=== PATIENT | female | born 1985 | race African-American/Black ===

== ENCOUNTER 2018-08-27 22:11 | Observation (INO) | payer MEDICAID ==
[~2018-08-27] VITALS: Ht 165.1 cm; Wt 75.7 kg
[2018-08-27] MEDS ORDERED: PREN1TAB78 MT (22:56)
[2018-08-28] MEDS ORDERED: TERBUTALINE SULFATE 1MG/ML VIAL SUBCUT NR (00:45)
[2018-08-28] MEDS ORDERED: LACTATED RINGERS 1,000 ML IV ONE (00:45)
== END 2018-08-28 01:55 | disposition home or self-care (01) ==
LOC: 8 EST LDRP 22:11
PROVIDERS: ADMIT Specialist; ATTEND Specialist
DX: O26.892 Other specified pregnancy related conditions, second trimester (principal); R10.30 Lower abdominal pain, unspecified; O09.522 Supervision of elderly multigravida, second trimester; Z3A.27 27 weeks gestation of pregnancy
CPT/HCPCS: 76815; 96372; 99281; G0378; J3105; 96360; 96361

== ENCOUNTER 2025-04-18 15:06 | Emergency (ER) | payer MEDICAID ==
[~2025-04-18] VITALS: Ht 165.1 cm; Wt 72.0 kg
[~2025-04-18 15:06] MED LIST: PREN1TAB78 MT
[2025-04-18 15:15] VITALS: O2SAT 99
[2025-04-18] MEDS: IBUPROFEN 600MG TABLET PO ONE (18:44)
[2025-04-18 18:48] VITALS: BP 169/97; PULSE 65; RESP 20; TEMP 36.8; O2SAT 99
== END 2025-04-18 18:52 | disposition home or self-care (01) ==
LOC: ER 15:06
DX: T23.471A Corrosion of unspecified degree of right wrist, initial encounter (principal); I10 Essential (primary) hypertension; V43.52XA Car driver injured in collision with other type car in traffic accident, initial encounter; Y93.89 Activity, other specified; Y92.410 Unspecified street and highway as the place of occurrence of the external cause; Y99.8 Other external cause status
CPT/HCPCS: 99284